=== PATIENT | female | born 1960 | race Caucasian/White ===

== ENCOUNTER 2019-01-01 09:08 | Emergency (ER) | payer MEDICAID ==
[~2019-01-01] VITALS: Wt 109.8 kg
[2019-01-01 09:16] VITALS: BP 170/78; PULSE 87; RESP 18
--- NOTE | 2019-01-01 10:25 | ERD ---
ER Documentation Chief Complaint Chief Complaint right leg pain since monday HPI 58-year-old female, presents the emergency department, complaining of acute onset of right leg pain that started 2 days ago. No history of trauma, the pain is described as dull, deep, constant, 7/10, associated with decreased range of motion of the right knee. The patient denies history of recent traveling, no history of malignancy or prolonged immobilization. She denies cough, no chest pain, no shortness of breath. The patient has been taking Tylenol with mild improvement of the symptoms. ROS All systems reviewed and are negative except as per history of present illness. Medications Home Meds Active Scripts Baclofen* (Baclofen*) 10 Mg Tablet, 10 MG PO QHS for 10 Days, #10 TAB Prov:ADELE HYMAN MD 01/01/19 Acetaminophen* (Tylenol*) 325 Mg Tablet, 2 TAB PO Q6 PRN for PAIN AND OR ELEVATED TEMP, #20 TAB Prov:ADELE HYMAN MD 01/01/19 Ibuprofen* (Motrin*) 400 Mg Tab, 400 MG PO Q8, #30 TAB Prov:ADELE HYMAN MD 01/01/19 Allergies Allergies: Coded Allergies: No Known Allergy (Unverified , 01/01/19) PMhx/Soc Medical and Surgical Hx: pt denies Medical Hx, pt denies Surgical Hx History of Surgery: No Anesthesia Reaction: No Hx Neurological Disorder: No Hx Respiratory Disorders: No Hx Cardiac Disorders: No Hx Psychiatric Problems: No Hx Miscellaneous Medical Probl: No Hx Alcohol Use: No Hx Substance Use: No Hx Tobacco Use: No Smoking Status: Never smoker FmHx Family History: No diabetes, No coronary disease Physical Exam Vitals Vital Signs Date Temp Pulse Resp B/P (MAP) Pulse Ox O2 O2 Flow FiO2 Time Delivery Rate 01/01/19 98.1 87 18 170/78 96 09:16 (108) Physical Exam Const: No acute distress Head: Atraumatic Eyes: Normal Conjunctiva ENT: Normal External Ears, Nose and Mouth. Neck: Full range of motion. No meningismus. Resp: Clear to auscultation bilaterally Cardio: Regular rate and rhythm, no murmurs Abd: Soft, non tender, non distended. Normal bowel sounds Skin: No petechiae or rashes Back: No midline or flank tenderness Ext: No cyanosis, or edema. Right knee: Mild edema with peripatellar crepitus and decreased range of motion due to pain. Distal neurovascular exam i ntact. Neur: Awake and alert Psych: Normal Mood and Affect Results 24 hrs Current Medications Medications Dose Sig/Luis Start Time Status Last (Trade) Ordered Route PRN Stop Time Admin Dose Reason Admin Ketorolac 15 mg ONCE STAT 01/01/19 DC 01/01/19 Tromethamine IM 10:27 10:37 (Toradol) 01/01/19 10:31 1 tab ONCE ONCE 01/01/19 DC 01/01/19 Acetaminophen PO 10:30 10:37 / 01/01/19 10:31 Hydrocodone Bitart ([place] (5)) Procedures/MDM Acute right leg pain: no red flags. Differential diagnosis include but not limited to: Musculoskeletal injury, arthritis, fracture, DVT; low suspicion for acute limb ischemia, septic arthritis, necrotizing fasciitis, compartment s yndrome. Neurovascular exam grossly intact. no clinical findings suggestive of acute infectious process, no acute deformity, no edema, no rashes. Pertinent Data: X-rays: No fracture or dislocation Venous Doppler: Negative for DVT Physical examination and clinical presentation consistent most likely with severe osteoarthritis of the right knee. During the ED course the patient received treatment with Toradol IM presenting overall improvement of the symptoms. Results and clinical impression discussed with the patient who agrees with management. The patient is stable to be treated outpatient and will be discharged home with recommendations for ice, rest and NSAIDs 3 times daily for 5 days and close monitoring. The patient was instructed to follow up with the primary care provider in the next 48h. If symptoms persist, worsen or new symptoms develop, then patient should return to the ED immediately. Instructions explained and given to patient with acknowledgment and demonstrated understanding. Disclaimer: Inadvertent spelling and grammatical errors are likely due to EHR/dictation software use and do not reflect on the overall quality of patient care. Also, please note that the electronic time recorded on this note does not necessarily reflect the actual time of the patient encounter. Departure Diagnosis: Primary Impression: Osteoarthritis of right knee Condition: Stable Additional Instructions: Muchas raheem por [facility] para marie servicio. Esperamos que en marie visita a la tomer de emergencia marie problema medico haya sido solucionado y que se sienta mucho mejor. Para estar seguros que marie mejoria sigue en proceso, le pedimos el favor de hacer ariel carlita de seguimiento medico con marie doctor primario en los proximos 2-4 limon. Lleve con usted estos documentos y las medicinas recetadas. Si kb sintomas empeoran, NO SE ESPERE, por favor regrese a tomer de emergencia INMEDIATAMENTE. En chinmay que usted no tenga un mdico de atencin primaria: Llame al mdico o clnica comunitaria de referencia que aparece abajo drake las horas de consultorio para hacer ariel carlita para que le vean. CLINICAS: [facility] [phone] [facility] [phone] [facility] [phone] [facility] [phone] [place] [id number] [phone] [facility] [phone] ADELE POSEY MD January 01, 2019 10:24
[2019-01-01] MEDS ORDERED: KETOROLAC 15 MG INJ IM STA (10:27)
[2019-01-01] MEDS ORDERED: HYDROCODONE/APAP (5/325) TAB PO ONE (10:30)
[2019-01-01] MEDS ORDERED: IBUP-1561 PO (11:40)
[2019-01-01] MEDS ORDERED: BACL10TA PO (11:40)
[2019-01-01] MEDS ORDERED: ACET325T33 PO (11:40)
== END 2019-01-01 11:46 | disposition home or self-care (01) ==
LOC: FTE 09:08
DX: M17.11 Unilateral primary osteoarthritis, right knee (principal)
CPT/HCPCS: 73562; 93971; 96372; J1885; Z7502; Z7610